=== PATIENT | male | born 1995 | race Caucasian/White ===

== ENCOUNTER 2018-11-24 17:51 | Emergency (ER) | payer SELFPAY ==
[~2018-11-24] VITALS: Ht 188 cm; Wt 123.4 kg
[2018-11-24 18:08] VITALS: BP 116/82
--- NOTE | 2018-11-24 19:00 | NUR ---
C/O COLD LIKE SYMPTOMS ACCOMPANIED BY NAUSEA X1 WEEK. LUNG SOUNDS CAEB, RESPIRATIONS UNLABORED, 02 RA 98%, PT A&O X4. DENIES VOMITING/FEVER. PT STATES HE FEELS LIKE HE HAS TO VOMIT BUT IT IS JUST PHLEGM. BED IN LOW POSITION, SIDE RAIL UP X1.
[2018-11-24 19:20] VITALS: BP 154/79
--- NOTE | 2018-11-24 19:20 | NUR ---
Received report from ESTEBAN Coronel. Patient discharged with v/s stable. Written and verbal after care instructions given and explained. Patient alert, oriented and verbalized understanding of instructions. Ambulatory with steady gait. All questions addressed prior to discharge. ID band removed. Patient advised to follow up with PMD. Rx of PROMETHAZINE DM 6.25MG-15MG/5ML SYRUP, ZOFRAN ODT 4MG AND VENTOLIN HFA 90MCG/ACTUATION INHALATION AEROSOL given. Patient educated on indication of medication including possible reaction and side effects. Opportunity to ask questions provided and answered.
== END 2018-11-24 19:20 | disposition home or self-care (01) ==
LOC: MED 17:51 → EDBD 17:51 → MED 19:20
DX: B34.9 Viral infection, unspecified (principal); R11.2 Nausea with vomiting, unspecified; F17.200 Nicotine dependence, unspecified, uncomplicated
CPT/HCPCS: 71045; 99283; Q0092